=== PATIENT | female | born 1940 | race Caucasian/White ===

== ENCOUNTER 2017-02-28 06:01 | Day surgery (SDC) | payer MEDICARE, BC ==
--- NOTE | ~2017-02-28 | EGD ---
EGD REPORT [facility] [address] [place] [address] NAME: JEREMIE SHAH : [birth year] STATUS : [place] [facility] [place]#: [id number] AGE: 76 ADM/REG DATE : 02/28/17 MR#: [id number] REPORT SERV DATE: 02/28/17 DICTATED BY: BEN VARGAS DATE: 02/28/17 REPORT STATUS : Draft [facility] DATE: 02/28/17 [facility] Patient Name: Jeremie Shah Date of : 1940 Attending MD: BEN VARGAS MD Procedure Date No Time: 02/28/2017 Procedure: Upper GI endoscopy Indications: Epigastric abdominal pain, Abdominal pain in the right upper quadrant; Omeprazole 40mg daily. Patient Profile: Informed consent was obtained from the patient by me prior to the procedure. Risks, benefits, and alternatives were discussed including the risk of bleeding, perforation, infection, reaction to medicine, missed lesion, and cardiopulmonary complications. Referring MD: ALFONZO RENEE Medicines: Monitored Anesthesia Care Complications: No immediate complications. Procedure: Pre-Anesthesia Assessment: - ASA Grade Assessment: II - A patient with mild systemic disease. After obtaining informed consent, the endoscope was passed under direct vision. Throughout the procedure, the patient's blood pressure, pulse, and oxygen saturations were monitored continuously. The GIF [id number] was introduced through the mouth, and advanced to the second part of duodenum. The endoscope was withdrawn with careful examination all mucosal surfaces including retroflexion stomach. The upper GI endoscopy was accomplished without difficulty. The patient tolerated the procedure well. Findings: The 2nd part of the duodenum was normal. Biopsies were taken with a cold forceps for histology. The first part of the duodenum was normal. The cardia, gastric antrum and gastric fundus (on retroflexion) were normal. A medium amount of food (residue) was found in the gastric body obscuring views. The examined esophagus was normal. The esophagus and gastroesophageal junction were examined with white light. There was no visual evidence of Wren's esophagus. Impression: - Normal 2nd part of the duodenum. Biopsied. - Normal first part of the duodenum. EGD REPORT [address] [address] NAME: JEREMIE SHAH : [birth year] STATUS : REG [facility]#: [id number] AGE: 76 ADM/REG DATE : 02/28/17 MR#: [id number] REPORT SERV DATE: 02/28/17 DICTATED BY: BEN VARGAS DATE: 02/28/17 REPORT STATUS : Draft TRANSCRIBED BY: [employer] DATE: 02/28/17 - Normal cardia, antrum and gastric fundus. - A medium amount of food (residue) in the stomach. - Normal esophagus. - There is no endoscopic evidence of Wren's esophagus. Recommendation: - Patient has a contact number available for emergencies. The signs and symptoms of potential delayed complications were discussed with the patient. Return to normal activities tomorrow. Written discharge instructions were provided to the patient. - Regular diet. - Continue present medications. - Await pathology results. - Symptoms improving, continue Omeprazole daily and increase to bid prn. - Await results US/HIDA. LT and A/L essentially normal. - Avoid NSAID's. Procedure Code(s): --- Professional --- 01161, Esophagogastroduodenoscopy, flexible, transoral; with biopsy, single or multiple Diagnosis Code(s): --- Professional --- R10.13, Epigastric pain R10.11, Right upper quadrant pain CPT copyright 2013 [employer]. All rights reserved. The codes documented in this report are preliminary and upon associate sales representative review may be revised to meet current compliance requirements. BEN VARGAS MD 02/28/2017 7:29 AM This report has been signed electronically. Number of Addenda: 0 Note Initiated On: 02/28/2017 6:51 AM Scope Withdrawal Time 0 hours 0 minutes 0 seconds [id number] [id number]
[~2017-02-28 06:01] MED LIST: ASAB PO; CAT2 PO; FISH-EPA1000 MG PO; GLUCCHONDR PO; HARD NAILS PO; MAGOX4 PO; NABUMETONE750 MG PO; PLAVIX PO; PRAVAC PO; PRILOSEC40 MG PO; PRIN10 PO; PRIN5 PO; PROTONIX PO; REG5 PO; TEG200 PO; ULTRAM ER100 MG PO; V-R VIT B-6100 MG OR; VITAMIN B-6100 MG PO; VITAMIN D2000 UNIT PO; VOLT75 PO
== END 2017-02-28 23:59 | disposition home or self-care (01) ==
LOC: DMU 06:01
PROVIDERS: Internal Medicine Gastroenterology
PROC: 0DB98ZX Excision of Duodenum, Via Natural or Artificial Opening Endoscopic, Diagnostic (ICD-10-PCS; principal; 2017-02-28 07:00)
DX: R10.13 Epigastric pain (principal); R10.11 Right upper quadrant pain; I10 Essential (primary) hypertension; K21.9 Gastro-esophageal reflux disease without esophagitis; Z88.5 Allergy status to narcotic agent
CPT/HCPCS: 88305